=== PATIENT | female | born 1970 | race Caucasian/White ===

== ENCOUNTER 2023-01-06 05:54 | Day surgery (SDC) | payer OTHER | END 2023-01-06 09:55 | disposition home or self-care (01) | LOC: AMB-ENDOS 05:54 | PROVIDERS: ATTEND Surgery | DX: K29.60 Other gastritis without bleeding (principal); K29.80 Duodenitis without bleeding; K21.9 Gastro-esophageal reflux disease without esophagitis; K44.9 Diaphragmatic hernia without obstruction or gangrene; E66.09 Other obesity due to excess calories; R10.13 Epigastric pain ==